=== PATIENT | male | born 1995 | race Caucasian/White ===

== ENCOUNTER 2020-09-10 07:26 | Inpatient (IN) ==
[~2020-09-10 07:26] MED LIST: Acetaminophen IV 1,000 MG/100 ML INFUS..BTL IVPB ONE; Famotidine 20 MG/2 ML VIAL IVP ONE; Pregabalin 75 MG CAPSULE PO ONE; Scopolamine Patch 1.5 MG PATCH.TD72 TD ONE
[2020-09-10] MEDS ORDERED: CeFAZolin Syr 3,000MG/30 ML 3,000 MG/30 ML SYRINGE IVPB ONE (07:44)
[2020-09-10] MEDS ORDERED: Ringers Solution, Lactated 1,000 ML IVC SCH (07:45)
[2020-09-10] MEDS ORDERED: Lidocaine -MPF 2% 2 ML VIAL ONE (07:48)
[2020-09-10] MEDS ORDERED: Dexamethasone 4 MG/ML VIAL ONE (07:48)
[2020-09-10] MEDS ORDERED: *HR* Succinylcholine 200 MG/10 ML VIAL IVP ONE (07:48)
[2020-09-10] MEDS ORDERED: Ondansetron 4 MG/2 ML VIAL ONE (07:48)
[2020-09-10] MEDS ORDERED: *HR* Rocuronium Bromide 50 MG/5 ML VIAL ONE (07:48)
[2020-09-10] MEDS ORDERED: *HR* Propofol 200 MG/20 ML VIAL IVP ONE ×2 (07:51)
[2020-09-10] MEDS ORDERED: *HR* FentaNYL (PF) 100 MCG/2 ML VIAL ONE ×2 (07:51→10:28)
[2020-09-10] MEDS ORDERED: *HR* Midazolam HCl 2 MG/2 ML VIAL ONE (07:51)
[2020-09-10] MEDS ORDERED: *HR* Labetalol 20 MG/4 ML SYRINGE IVP PRN (08:00)
[2020-09-10] MEDS ORDERED: *HR* OxyCODONE Immed Rel 5 MG TABLET PO PRN (08:00)
[2020-09-10] MEDS ORDERED: *HR* HYDROmorphone 2 MG TABLET PO PRN (08:00)
[2020-09-10] MEDS: *HR* HYDROmorphone (PF) 1 MG/ML SYRINGE IVP PRN ×4 (10:53→11:30)
[2020-09-10] MEDS ORDERED: Naloxone 0.4 MG/ML INJ IVP PRN (12:15)
[2020-09-10] MEDS ORDERED: Ondansetron 4 MG/2 ML VIAL IVP PRN (12:15)
[2020-09-10] MEDS: *HR* Heparin 5,000 UNIT/ML VIAL SQ SCH ×2 (13:47→21:15)
[2020-09-10] MEDS: Ketorolac 15 MG/ML VIAL IVP SCH ×2 (13:48→17:30)
[2020-09-10] MEDS: Gabapentin 300 MG CAPSULE PO SCH ×2 (13:49→21:15)
[2020-09-10] MEDS: 0.9 % Sodium Chloride 1,000 ML IVC SCH (13:51)
[2020-09-10] MEDS: Ipratropium/Albuterol Neb 3 ML IH SCH ×3 (15:44→20:12)
[2020-09-10] MEDS: *HR* HYDROcodone/Acet 5/325 mg TABLET PO PRN (18:28)
[2020-09-10] MEDS: Sennosides/Docusate Sodium TABLET PO SCH (21:15)
[2020-09-10] MEDS: Famotidine 20 MG TABLET PO SCH (21:15)
[2020-09-11] MEDS: Ipratropium/Albuterol Neb 3 ML IH SCH ×3 (00:21→07:49)
[2020-09-11] MEDS: Ketorolac 15 MG/ML VIAL IVP SCH ×2 (00:23→06:35)
[2020-09-11] MEDS: *HR* HYDROcodone/Acet 5/325 mg TABLET PO PRN (02:44)
[2020-09-11] MEDS: 0.9 % Sodium Chloride 1,000 ML IVC SCH (03:56)
[2020-09-11] MEDS: *HR* Heparin 5,000 UNIT/ML VIAL SQ SCH (06:35)
[2020-09-11 07:39] VITALS: BP 132/72
[2020-09-11] MEDS: Sennosides/Docusate Sodium TABLET PO SCH (08:05)
[2020-09-11] MEDS: Famotidine 20 MG TABLET PO SCH (08:05)
[2020-09-11] MEDS: Gabapentin 300 MG CAPSULE PO SCH (08:05)
== END 2020-09-11 10:50 | disposition home or self-care (01) | DRG 121 ==
LOC: SAMDAY 07:26 → 2NNU 12:09
PROVIDERS: ADMIT Thoracic Surgery (Cardiothoracic Vascular Surgery); ATTEND Thoracic Surgery (Cardiothoracic Vascular Surgery)